=== PATIENT | male | born 1950 | race Caucasian/White ===

== ENCOUNTER 2017-05-26 22:03 | Emergency (ER) | payer MEDICARE ==
[2017-05-26 22:11] VITALS: RESP 18
--- NOTE | 2017-05-26 23:00 | ED ---
Male Urogenital HPI - General Chief complaint: Urogenital Stated complaint: URINE RETENTION Time Seen by Provider: 05/26/17 22:15 Source: patient Mode of arrival: ambulatory Limitations: no limitations - History of Present Illness Initial comments: This patient is a 66-year-old man with history of BPH and previous urinary retention. He states that for the past 3 hours he has not been able to urinate. He has started developing moderate pressure pain in the suprapubic area. He states this feels identical to previous episode of urinary retention area he states that he had have a Jeter catheter and follow up with urology previously. He sees Dr. oMnzon, though it has been a few years since he had any issue. He takes Flomax which seems to control the symptoms usually. Patient denies any other associated symptoms, no fever or chills, no vomiting or diarrhea. Patient had not been having dysuria or hematuria. MD Complaint: other (Urinary retention) Onset/Timin -: hour(s) Location: abdomen Radiation: none Severity: moderate Quality: other (Pressure) Consistency: constant Improves with: none Worsens with: palpation Reports: urinary retention - Related Data Home Medications Medication Instructions Recorded Confirmed Calcium Polycarbophil [Fibercon] 625 mg PO DAILY 05/26/17 05/26/17 Multivitamins, Thera [Multivitamin 1 tab PO DAILY 05/26/17 05/26/17 (formulary)] Tamsulosin HCl [Flomax] 0.4 mg PO DAILY 05/26/17 05/26/17 Allergies Allergy/AdvReac Type Severity Reaction Status Date / Time No Known Allergies Allergy Verified 05/26/17 22:28 Review of Systems ROS Statement: Those systems with pertinent positive or pertinent negative responses have been documented in the HPI. ROS Other: All systems not noted in ROS Statement are negative. Constitutional: Denies: fever, chills Respiratory: Denies: cough, dyspnea Cardiovascular: Denies: chest pain, palpitations, edema Gastrointestinal: Reports: abdominal pain. Denies: nausea, vomiting, diarrhea Genitourinary: Reports: other (Urinary retention). Denies: dysuria, hematuria, testicular pain Musculoskeletal: Denies: back pain Skin: Denies: rash Past Medical History Additional Past Medical History / Comment(s): BPH History of Any Multi-Drug Resistant Organisms: None Reported Past Surgical History: Hernia Repair Additional Past Surgical History / Comment(s): left shoulder Past Psychological History: No Psychological Hx Reported Smoking Status: Never smoker Past Alcohol Use History: None Reported Past Drug Use History: None Reported General Exam Limitations: no limitations General appearance: alert, in no apparent distress Head exam: Present: atraumatic, normocephalic Eye exam: Present: normal appearance. Absent: scleral icterus, conjunctival injection Respiratory exam: Present: normal lung sounds bilaterally. Absent: respiratory distress, wheezes, rales, rhonchi, stridor Cardiovascular Exam: Present: regular rate, normal rhythm, normal heart sounds. Absent: systolic murmur, diastolic murmur, rubs, gallop GI/Abdominal exam: Present: soft. Absent: distended, tenderness, guarding, rebound, rigid, mass, pulsatile mass, hernia exam: Present: normal inspection Extremities exam: Present: normal inspection, normal capillary refill. Absent: pedal edema, calf tenderness Back exam: Present: normal inspection. Absent: CVA tenderness (R), CVA tenderness (L) Skin exam: Present: warm, dry, intact, normal color. Absent: rash Course Vital Signs 05/26/17 22:06 Temperature 97.4 F L Pulse Rate 110 H Respiratory 18 Rate Blood Pressure 169/84 O2 Sat by Pulse 100 Oximetry Disposition Clinical Impression: Acute urinary retention Disposition: HOME SELF-CARE Condition: Good Instructions: Urinary Retention in Men (ED) Referrals: Jesus Monzon MD [Primary Care Provider] - 1-2 days
[2017-05-26 23:30] LABS: Appearance,Urine Clear (Clear); Bilirubin,Urine Negative (Negative); Blood,Urine Moderate (Negative); Color,Urine Light Yellow; Glucose,Urine (UA) Negative (Negative); Ketones,Urine Negative (Negative); Leukocyte Esterase,Urine Negative (Negative); Mucus,Urine Rare /hpf; Nitrite,Urine Negative (Negative); Protein,Urine Negative (Negative); RBC,Urine 38 /hpf (0-5); Specific Gravity,Urine 1.008 (1.001-1.035); Urobilinogen,Urine <2.0 mg/dL (<2.0); WBC,Urine 1 /hpf (0-5)
[2017-05-26 23:47] VITALS: BP 137/65; PULSE 92; TEMP 98.7
== END 2017-05-26 23:46 | disposition home or self-care (01) ==
LOC: EC 22:03
DX: R33.9 Retention of urine, unspecified (principal); R10.9 Unspecified abdominal pain; N40.0 Benign prostatic hyperplasia without lower urinary tract symptoms; Z79.899 Other long term (current) drug therapy
CPT/HCPCS: 51702; 81001; 99283

== ENCOUNTER → 2017-07-10 | Outpatient (CLI) | payer MEDICARE ==
[2017-07-10 10:43] LABS: Appearance,Urine Cloudy (Clear); Color,Urine Light Yellow; Glucose,Urine (UA) Negative (Negative); Ketones,Urine Negative (Negative); PH, Urine 6.5 (5.0-8.0); Protein,Urine Negative (Negative); Specific Gravity,Urine 1.006 (1.001-1.035)
[2017-07-10 10:44] LABS: Amorphous Sediment,Urine Rare /hpf; Bacteria,Urine Occasional /hpf; Bilirubin,Urine Negative (Negative); Blood,Urine Small (Negative); Leukocyte Esterase,Urine Large (Negative); Mucus,Urine Rare /hpf; Nitrite,Urine Positive (Negative); RBC,Urine 3 /hpf (0-5); Squamous Epithelial Cell,Urine <1 /hpf (0-4); Urobilinogen,Urine <2.0 mg/dL (<2.0); WBC,Urine 78 /hpf (0-5)
[2017-07-10 10:48] LABS: Basophils % (A) 0 %; Eosinophils # (A) 0.3 k/uL (0-0.7); Eosinophils % (A) 3 %; HCT 44.8 % (39.0-53.0); Lymphocytes # (A) 2.3 k/uL (1.0-4.8); Lymphocytes % (A) 20 %; MCH 30.5 pg (25.0-35.0); MCHC 33.6 g/dL (31.0-37.0); MCV 90.9 fL (80.0-100.0); Mean Platelet Volume 7.2; Monocytes # (A) 0.8 k/uL (0-1.0); Monocytes % (A) 7 %; Neutrophils % (A) 69 %; Platelet Count 225 k/uL (150-450); RBC 4.93 m/uL (4.30-5.90); RDW 12.4 % (11.5-15.5); WBC 11.7 k/uL (3.8-10.6)
[2017-07-10 11:00] LABS: ALT 70 U/L (21-72); AST 50 U/L (17-59); Albumin 4.3 g/dL (3.5-5.0); Alkaline Phosphatase 91 U/L (38-126); Anion Gap 11 mmol/L; Blood Urea Nitrogen 17 mg/dL (9-20); Calcium 9.9 mg/dL (8.4-10.2); Carbon Dioxide 28 mmol/L (22-30); Chloride 104 mmol/L (98-107); Glucose 81 mg/dL (74-99); Potassium 4.7 mmol/L (3.5-5.1); Sodium 143 mmol/L (137-145); Total Protein 6.7 g/dL (6.3-8.2)
== END ==
LOC: LABPAT 09:33
PROVIDERS: ATTEND Urology
DX: Z01.818 Encounter for other preprocedural examination (principal); N40.1 Benign prostatic hyperplasia with lower urinary tract symptoms; I10 Essential (primary) hypertension; R31.0 Gross hematuria; Z79.899 Other long term (current) drug therapy; Z01.812 Encounter for preprocedural laboratory examination
CPT/HCPCS: 36415; 80053; 81001; 85025; 86850; 86900; 86901; 87077; 87086; 87186; 93005

== ENCOUNTER 2017-07-17 07:42 | Inpatient (IN) | payer MEDICARE ==
[2017-07-09 09:39] VITALS: BMI 22.8
[~2017-07-17 07:42] MED LIST: AMPICILLIN 1,000 MG in SODIUM CHLORIDE 0.9% 50 ML IVPB ONE; DEXAMETHASONE SOD PHOSPHATE 10 MG/ML 1 ML VIAL IV ONE; GENTAMICIN 100 MG in SODIUM CHLORIDE 0.9% 100 ML IVPB ONE; LACTATED RINGERS 1,000 ML IV SCH; LIDOCAINE 1% 20 ML VIAL (10MG/ML) FOR IV START INTRADERMA PRN; MORPHINE SULFATE 4 MG/ML SYRINGE IV PRN; ONDANSETRON 4 MG/2 ML VIAL IVP ONE; SCOPOLAMINE 1.5MG/72HR PATCH TRANSDERM ONE
[2017-07-17] MEDS ORDERED: SUCCINYLCHOLINE CHLORIDE VIAL 200 MG/10 ML VIAL IV ONE (09:27)
[2017-07-17] MEDS ORDERED: HYDROmorphone (PF) 1 MG/ML ONE (09:27)
[2017-07-17] MEDS ORDERED: PROPOFOL 10 MG/ML 20 ML VIAL IV ONE (09:27)
[2017-07-17] MEDS ORDERED: LIDOCAINE 1% INJ 10MG/ML (20 ML MDV) ONE (09:27)
[2017-07-17] MEDS ORDERED: fentaNYL (PF) 50 MCG/ML 2 ML AMP ONE (09:27)
[2017-07-17] MEDS ORDERED: ePHEDrine SULFATE/0.9% NACL/PF 50 MG/5 ML SYRINGE IV ONE (09:27)
[2017-07-17] MEDS ORDERED: MIDAZOLAM 2 MG/2 ML VIAL ONE (09:27)
[2017-07-17] MEDS ORDERED: PHENYLEPHRINE-0.9% NACL SYG 1 MG/10 ML SYRINGE ONE (09:27)
[2017-07-17] MEDS ORDERED: MORPHINE SULFATE (PF) 0.3 MG/0.3 ML SYR ONE (09:27)
[2017-07-17] MEDS ORDERED: diphenhydrAMINE 50 MG/ML 1 ML VIAL IVP PRN (11:05)
[2017-07-17] MEDS ORDERED: NALOXONE 0.4 MG/ML 1 ML VIAL IV PRN ×2 (11:05→12:45)
[2017-07-17] MEDS ORDERED: MORPHINE SULFATE 4 MG/ML SYRINGE IVP PRN (11:05)
[2017-07-17] MEDS ORDERED: MAG HYDROX/AL HYDROX/SIMETH 30 ML CUP PO PRN (12:42)
[2017-07-17] MEDS ORDERED: ACETAMINOPHEN TAB 325 MG TAB PO PRN (12:42)
[2017-07-17] MEDS ORDERED: BELLADONNA-OPIUM 16.2-60 MG 1 EACH SUPP RECTAL PRN (12:42)
[2017-07-17] MEDS ORDERED: HYDROmorphone PCA 5 MG/25 ML SYRINGE IV PRN (12:45)
--- NOTE | 2017-07-17 12:57 | P.OP ---
Date of Procedure: 07/17/17 Preoperative Diagnosis: Urine retention secondary to very large prostate Postoperative Diagnosis: Same Procedure(s) Performed: Suprapubic prostatectomy, cystoscopy and transurethral fulguration of bleeding Anesthesia: guadalupe STEVENS Surgeon: Jesus Monzon Staff Field Engineer #1: Bay Cosby Estimated Blood Loss (ml): 800 Condition: stable Disposition: PACU Indications for Procedure: The patient is a 66-year-old gentleman who has a history of prostatism. He has been on finasteride and Flomax. He went in urinary retention despite that. Cystoscopy identified a very large prostate. Prostate ultrasound identified the prostate it over 200 mL volume. He come for a suprapubic prostatectomy. He 's been offered alternatives Description of Procedure: The patient is brought to the operating suite. He is given a successful spinal anesthesia. He is given a sterile prep and drape. The midline suprapubic incision is made and it has become apparent that the spinal anesthetic has not taken yet. He is thus given a general endotracheal anesthesia. I then open the rectus fascia in the midline. The prevesical space is developed. The bladder is opened. The bladder wall is very thick. I then place retraction with the [place] retractor. Identify the ureteral orifice sees. There is a very large intravesical middle lobe and a very long deep prostate. I incised the mucosa around the bladder neck making sure not to injure the ureteral orifice sees. I dissect the posterior prostate off the true prostate. I cracked the mucosa anteriorly and dissect the lateral lobes off the body wall. I finally nucleate the whole prostate out of the prosthetic bed. His very large. Bleeding is controlled by using 3-0 chromic stitches around the bladder neck to the prostatic bed. At this point in time a 20-Nauruan 30 mL balloon catheters placed through the urethra. An 18-Nauruan 5 mL balloon was brought through separate stab incision into the bladder wall. The bladder is closed with 2 layers of 2 and extubated 3 and 2-0 Vicryl. The bladder irrigates light clear. Excellent breath drains brought through separate stab incision. The rectus fascias closed with double-stranded 0 PDS a skin is stapled. Unfortunately spinal anesthetic did not take and the patient woke up for severe amount of discomfort. The Valsalva cause a significant amount of bleeding such that he had be reintubated. I then performed transurethral inspection of the prosthetic fossa. I controlled bleeding with electrocautery. There is a fair amount of apical bleeding. Then of the procedure I reintroduced the 20-Nauruan 30 mL balloon over a mandrin guide. There is light pink urine return with irrigation. The patient is awakened deeply and returned recovery room good condition. Blood loss is approximately 800 mL.
[2017-07-17] MEDS ORDERED: SODIUM CHLORIDE 0.9% IRRIG 3,000 ML BAG IRRIGATION SCH (13:30)
[2017-07-17 13:45] LABS: Basophils % (A) 0 %; Eosinophils # (A) 0.1 k/uL (0-0.7); Eosinophils % (A) 1 %; HCT 38.3 % (39.0-53.0); HGB 12.9 gm/dL (13.0-17.5); Lymphocytes # (A) 1.2 k/uL (1.0-4.8); Lymphocytes % (A) 5 %; MCH 30.6 pg (25.0-35.0); MCHC 33.7 g/dL (31.0-37.0); MCV 90.8 fL (80.0-100.0); Mean Platelet Volume 7.8; Monocytes # (A) 0.7 k/uL (0-1.0); Monocytes % (A) 3 %; Neutrophils # (A) 21.8 k/uL (1.3-7.7); Neutrophils % (A) 91 %; Platelet Count 253 k/uL (150-450); RBC 4.22 m/uL (4.30-5.90); RDW 12.5 % (11.5-15.5)
[2017-07-17] MEDS: DEXTROSE 5%-0.45% NACL 1,000 ML IV SCH (19:34)
[2017-07-17] MEDS: DOCUSATE 100 MG CAP PO SCH (19:40)
[2017-07-18] MEDS: DEXTROSE 5%-0.45% NACL 1,000 ML IV SCH ×2 (03:24→15:49)
--- NOTE | 2017-07-18 05:44 | P.PN ---
Progress Note - Text Date: 07/18/2017 Time: 0506 The patient is status post, suprapubic prostatectomy, postoperative day #1. Vital signs stable VAS: 0-10 Patient has no complaints of pain. The patient has no complaints of nausea vomiting or headache. Pain meds to be managed by service.
--- NOTE | 2017-07-18 06:14 | P.PN ---
Subjective Progress Note Date: 07/18/17 The patient is in his first postoperative day from a suprapubic prostatectomy and postoperative bleeding control with a transurethral cauterization. His urine is quite clear with a slow irrigation this morning. His abdomen was soft. He is having minimal pain. He tolerated diet last night. I will stop the irrigation. He will sit up in a chair today. He'll continue with the pain control. His hemoglobin was good postop. Objective - Vital Signs Vital signs: Vital Signs Temp 98.4 F 07/18/17 00:00 Pulse 92 07/18/17 00:00 Resp 18 07/18/17 06:00 BP 118/70 07/18/17 00:00 Pulse Ox 97 07/18/17 00:00 Intake & Output 07/17/17 07/17/17 07/18/17 06:59 18:59 06:59 Intake Total 2652.5 862.5 Output Total 3820 6640 Balance -1167.5 -5777.5 Weight 70.307 kg Intake: IV 2502.5 Intake, IV Titration 862.5 Amount Dextrose 5%-0.45% NaCl 1, 862.5 000 ml @ 75 mls/hr IV . [id number] [facility] Rx#:[id number] Oral 150 Output: Drainage 40 Lower Abdomen 40 Urine 2950 6600 Suprapubic 2450 Uretheral (Jeter) 6600 Estimated Blood Loss 870 Other: Voiding Method Indwelling Catheter Indwelling Catheter - Labs CBC & Chem 7: 07/17/17 13:12 Labs: Abnormal Lab Results - Last 24 Hours (Table) 07/17/17 Range/Units 13:12 WBC 24.0 H (3.8-10.6) k/uL RBC 4.22 L (4.30-5.90) m/uL Hgb 12.9 L (13.0-17.5) gm/dL Hct 38.3 L (39.0-53.0) % Neutrophils # 21.8 H (1.3-7.7) k/uL
[2017-07-18] MEDS ORDERED: SODIUM CHLORIDE 0.9% IRRIG 3,000 ML BAG IRRIGATION SCH (07:30)
[2017-07-18] MEDS: SODIUM CHLORIDE 0.9% IRRIGATIO 3,000 ML IRRIGATION SCH (08:25)
[2017-07-18] MEDS: DOCUSATE 100 MG CAP PO SCH ×2 (08:29→22:24)
[2017-07-19] MEDS: DEXTROSE 5%-0.45% NACL 1,000 ML IV SCH ×2 (06:11→10:24)
[2017-07-19] MEDS ORDERED: OXYBUTYNIN CHLORIDE 5 MG TAB PO PRN (06:59)
--- NOTE | 2017-07-19 06:59 | P.PN ---
Subjective Progress Note Date: 07/19/17 The patient is in his second postoperative day from a suprapubic prostatectomy. His urine is clear off irrigation. His vital signs are stable. His pain is under control. I will discontinue his IV and FIRST COOK. I will place him on oral pain medicine. I'll place him on some Ditropan for bladder spasms. Objective - Vital Signs Vital signs: Vital Signs Temp 99.5 F 07/18/17 20:04 Pulse 116 H 07/19/17 00:30 Resp 16 07/19/17 06:00 BP 118/67 07/18/17 20:04 Pulse Ox 96 07/18/17 20:04 Intake & Output 07/18/17 07/18/17 07/19/17 06:59 18:59 06:59 Intake Total 862.5 1017 600 Output Total 6640 40 2510 Balance -5777.5 977 -1910 Weight 70.307 kg Intake: Intake, IV Titration 862.5 600 Amount Dextrose 5%-0.45% NaCl 1, 862.5 600 000 ml @ 75 mls/hr IV . [id number] [facility] Rx#:[id number] Oral 417 600 Output: Drainage 40 40 Lower Abdomen 40 40 Urine 6600 2510 Uretheral (Jeter) 6600 Other: Voiding Method Indwelling Catheter Indwelling Catheter Indwelling Catheter - Labs CBC & Chem 7: 07/17/17 13:12
[2017-07-19] MEDS: DOCUSATE 100 MG CAP PO SCH ×2 (10:20→19:53)
[2017-07-19] MEDS: SODIUM CHLORIDE 0.9% IRRIGATIO 3,000 ML IRRIGATION SCH (10:25)
[2017-07-19] MEDS: HYDROcodone/APAP 5-325MG 1 EACH TAB PO PRN (22:20)
[2017-07-20] MEDS: HYDROcodone/APAP 5-325MG 1 EACH TAB PO PRN (03:57)
--- NOTE | 2017-07-20 06:54 | P.DS ---
Providers Date of admission: 07/17/17 07:42 Attending physician: Jesus Monzon Primary care physician: Jesus Monzon [facility] Course: The patient is a 66-year-old gentleman who was admitted to the hospital on 2017 he underwent a suprapubic prostatectomy and postoperative endoscopy with fulguration of bleeding. He has done well postoperatively. His irrigation was stopped on the first 24 hours. He ambulated in the second 24 hours. He is tolerating a regular diet. His urethral catheter and drained of been removed. Postoperative pain has been controlled appropriately. His hemoglobin is appropriate. His pathology was benign. Good. He is able to tolerate regular diet and ambulate and his pain is under control. He'll be discharged home with his suprapubic tube to drainage. He'll follow-up in the office next Saturday for staple removal. The catheter stent of the following week. Postoperative instructions and pathology reported been discussed. His condition is good upon discharge Patient Condition at Discharge: Good Plan - Discharge Summary Discharge Rx Participant: Yes New Discharge Prescriptions: New HYDROcodone/APAP 5-325MG [[place] 5-325] 1 tab PO Q4HR PRN #14 tab PRN Reason: Pain Control No Action Tamsulosin HCl [Flomax] 0.4 mg PO BID Multivitamins, Thera [Multivitamin (formulary)] 1 tab PO DAILY Ibuprofen [Advil] 200 mg PO Q8HR PRN PRN Reason: Pain Finasteride [Proscar] 5 mg PO HS Fiber Capsule(Dose Unknown) 5 cap PO DAILY Discharge Medication List Multivitamins, Thera [Multivitamin (formulary)] 1 tab PO DAILY 05/26/17 [History ] Tamsulosin HCl [Flomax] 0.4 mg PO BID 05/26/17 [History] Fiber Capsule(Dose Unknown) 5 cap PO DAILY 07/09/17 [History] Finasteride [Proscar] 5 mg PO HS 07/09/17 [History] Ibuprofen [Advil] 200 mg PO Q8HR PRN 07/09/17 [History] HYDROcodone/APAP 5-325MG [[place] 5-325] 1 tab PO Q4HR PRN #14 tab 07/20/17 [Rx] Follow up Appointment(s)/Referral(s): Jesus Monzon MD [Primary Care Provider] - 07/24/17 Activity/Diet/Wound Care/Special Instructions: Home with suprapubic tube. May shower. No heavy activity. Resume his home medications. Discharge Disposition: HOME SELF-CARE
[2017-07-20 07:15] VITALS: BP 146/78; PULSE 78; RESP 12; TEMP 97.5
[2017-07-20] MEDS: DOCUSATE 100 MG CAP PO SCH (07:16)
[2017-07-20] MEDS: DEXTROSE 5%-0.45% NACL 1,000 ML IV SCH (08:35)
[2017-07-20] MEDS: SODIUM CHLORIDE 0.9% IRRIGATIO 3,000 ML IRRIGATION SCH (08:36)
== END 2017-07-20 12:42 | disposition home or self-care (01) | DRG 909 ==
LOC: 2ORMAIN 07:42 → 3SUR 12:28
PROVIDERS: ADMIT Urology; ATTEND Urology
PROC: 0W3R7ZZ Control Bleeding in Genitourinary Tract, Via Natural or Artificial Opening (ICD-10-PCS; 2017-07-17)
PROC: 0VT04ZZ Resection of Prostate, Percutaneous Endoscopic Approach (ICD-10-PCS; principal; 2017-07-17 09:15)
DX: N99.61 Intraoperative hemorrhage and hematoma of a genitourinary system organ or structure complicating a genitourinary system procedure (principal); N40.1 Benign prostatic hyperplasia with lower urinary tract symptoms; R33.8 Other retention of urine; N32.89 Other specified disorders of bladder; F41.9 Anxiety disorder, unspecified; M54.9 Dorsalgia, unspecified; M54.2 Cervicalgia; M25.50 Pain in unspecified joint; K30 Functional dyspepsia; Z82.3 Family history of stroke; Z82.49 Family history of ischemic heart disease and other diseases of the circulatory system
CPT/HCPCS: 85025; 86850; 86900; 86901; 88307; 94760; 94762

== ENCOUNTER → 2019-03-18 | Outpatient (CLI) | payer MEDICARE ==
--- NOTE | 2019-03-18 21:36 | MR ---
EXAMINATION TYPE: MR iac wo/w con DATE OF EXAM: 03/18/2019 COMPARISON: None HISTORY: Dizziness TECHNIQUE: Multiplanar, multisequence images of the brain and brainstem with small [id number] and high resolu tion images through the internal auditory canals is performed without and with IV contrast, utilizing 7 mL intravenous Gadavist . FINDINGS: Diffusion weighted images demonstrate no evidence of a recent infarct or other diffusion ab normality. There is no extra-axial fluid collection, some confluent periventricular hyperintensity a nd inversion recovery T2-weighted sequences is present. The ventricular system and cisternal spaces are normal in size and appearance. The brain volume is age appropriate. Internal auditory canals keegan w symmetric appearance. Midline structures demonstrate normal morphology. The craniocervical junction appears within normal limits. Post contrast images demonstrate no abnormal enhancement. The dural venous sinuses appear pa tent. The visualized sinuses are remarkable for mucosal disease in the ethmoid air cells and the glob es are intact. IMPRESSION: Nonspecific white matter demyelination may be due to chronic small vessel ischemic change , there is age-related atrophy
== END | disposition home or self-care (01) ==
LOC: RADMRIMAIN 08:13
PROVIDERS: ATTEND Otolaryngology
DX: G37.9 Demyelinating disease of central nervous system, unspecified (principal)
CPT/HCPCS: 70553; A9585

== ENCOUNTER 2020-03-07 12:08 | Day surgery (SDC) | payer MEDICARE ==
[2020-03-01 13:27] VITALS: BMI 22.8
[~2020-03-07 12:08] MED LIST changes: -AMPICILLIN 1,000 MG in SODIUM CHLORIDE 0.9% 50 ML IVPB ONE; -DEXAMETHASONE SOD PHOSPHATE 10 MG/ML 1 ML VIAL IV ONE; -GENTAMICIN 100 MG in SODIUM CHLORIDE 0.9% 100 ML IVPB ONE; -LACTATED RINGERS 1,000 ML IV SCH; -LIDOCAINE 1% 20 ML VIAL (10MG/ML) FOR IV START INTRADERMA PRN; -MORPHINE SULFATE 4 MG/ML SYRINGE IV PRN; -ONDANSETRON 4 MG/2 ML VIAL IVP ONE; -SCOPOLAMINE 1.5MG/72HR PATCH TRANSDERM ONE; +SODIUM CHLORIDE 0.9% 1,000 ML IV SCH
[2020-03-07] MEDS ORDERED: SODIUM CHLORIDE 0.9% 1,000 ML IV ONE (12:23)
[2020-03-07 12:45] VITALS: RESP 16; TEMP 98.5
[2020-03-07 14:38] VITALS: BP 132/73; PULSE 73
--- NOTE | 2020-03-07 18:25 | P.EPPROC ---
- EP Procedure Note Electrophysiology Procedure Note: Diagnosis Recurrent presyncope Twelve-lead EKG Sinus rhythm normal [place] narrow QRS normal ST segments Tilt table test per protocol Baseline blood pressure 155/77 mmHg pulse rate in the 80s Patient was tilted upright at an angle of 70 per protocol blood pressure remained in the 130s to 140s systolic. Diastolic remained in the 80s Pulse rate in the 70s and 80s No syncope He is laid supine at the end of the procedure Impression Normal twelve-lead EKG Normal heart rate and blood pressure response to upright tilting
== END 2020-03-07 14:21 | disposition home or self-care (01) ==
LOC: CATHEP 12:08
PROVIDERS: ATTEND Internal Medicine Clinical Cardiac Electrophysiology
DX: R55 Syncope and collapse (principal)
CPT/HCPCS: 93660

== ENCOUNTER → 2020-12-13 | Outpatient (CLI) | payer MEDICARE ==
--- NOTE | 2020-12-13 12:14 | XR ---
EXAMINATION TYPE: XR chest 2V DATE OF EXAM: 12/13/2020 COMPARISON: NONE TECHNIQUE: PA and lateral views submitted. HISTORY: Presurgical FINDINGS: The lungs are clear and there is no pneumothorax, pleural effusion, or focal pneumonia. Curvature o f the spine with degenerative changes. Heart size normal. No overt failure. Biapical pleural thickeni ng. Hyperinflation suggests COPD. IMPRESSION: 1. No acute process. Correlate for COPD.
[2020-12-13 14:48] LABS: Appearance,Urine Clear (Clear); Bilirubin,Urine Negative (Negative); Blood,Urine Negative (Negative); Color,Urine Light Yellow; Glucose,Urine (UA) Negative (Negative); Ketones,Urine Negative (Negative); Leukocyte Esterase,Urine Negative (Negative); Nitrite,Urine Negative (Negative); Protein,Urine Negative (Negative); Specific Gravity,Urine 1.005 (1.001-1.035); Urobilinogen,Urine <2.0 mg/dL (<2.0)
[2020-12-13 15:52] LABS: HCT 49.3 % (39.6-50.0); HGB 16.1 g/dL (13.0-17.0); MCH 30.9 pg (27.0-32.0); MCHC 32.7 g/dL (32.0-37.0); MCV 94.6 fL (80.0-97.0); Mean Platelet Volume 10.7 fL (9.5-12.2); Platelet Count 251 X 10*3/uL (140-440); RBC 5.21 X 10*6/uL (4.40-5.60); RDW 11.8 % (11.5-14.5); WBC 9.43 X 10*3/uL (4.50-10.00)
[2020-12-13 20:05] LABS: African American GFR (CKD) 81.7 (60.0-200.0); Albumin/Globulin Ratio 2.59 (1.60-3.17); Anion Gap 11.4 mmol/L (4.00-12.00); BUN/Creat Ratio 17.2 Ratio (12.00-20.00); Blood Urea Nitrogen 18.4 mg/dL (9.0-27.0); Calcium 10.2 mg/dL (8.7-10.3); Carbon Dioxide 26.8 mmol/L (21.6-31.8); Globulin 1.9 g/dL (1.6-3.3); Non-African American GFR(CKD) 70.5 (60.0-200.0); Total Bilirubin 0.8 mg/dL (0.30-1.20); Total Protein 6.9 g/dL (6.2-8.2)
== END | disposition home or self-care (01) ==
LOC: LABWHC1 11:20
PROVIDERS: ATTEND Orthopaedic Surgery Orthopaedic Surgery of the Spine
DX: Z01.812 Encounter for preprocedural laboratory examination (principal); Z01.818 Encounter for other preprocedural examination
CPT/HCPCS: 36415; 71046; 80053; 81003; 85027; 85730

== ENCOUNTER 2020-12-20 10:43 | Emergency (ER) | payer MEDICARE ==
[2020-12-20 11:15] VITALS: BP 147/76; PULSE 102; RESP 16; TEMP 98
--- NOTE | 2020-12-20 11:46 | ED ---
Male Urogenital HPI - General Chief complaint: Urogenital Stated complaint: unable to urinate post procedure Time Seen by Provider: 12/20/20 11:32 Source: patient, RN notes reviewed Mode of arrival: ambulatory Limitations: no limitations - History of Present Illness Initial comments: This a 70-year-old male presents emergency with chief complaint of unable to urinate. Patient states he has some dribbling. Patient states he just had a laminectomy this morning by Dr. Barber. Patient was recommended to come emergency Department if he feels unable to urinate for Jeter catheter. He has had this happen the past secondary to surgery and prostate issues. Patient states his pain is essentially very mild in his back. He has not drank much fluids as she's been nothing by mouth since midnight. Patient is just concerned he doesn't want to go home and come back. - Related Data Home Medications Medication Instructions Recorded Confirmed Fiber Capsule(Dose Unknown) 5 cap PO DAILY 07/09/17 03/07/20 Ibuprofen [Advil] 200 mg PO Q8HR PRN 07/09/17 03/01/20 Aspirin 81 mg PO DAILY 03/01/20 03/07/20 Multivitamins, Thera [Multivitamin 1 tab PO DAILY 03/01/20 03/07/20 (formulary)] Allergies Allergy/AdvReac Type Severity Reaction Status Date / Time No Known Allergies Allergy Verified 03/07/20 12:52 Review of Systems ROS Statement: Those systems with pertinent positive or pertinent negative responses have been documented in the HPI. ROS Other: All systems not noted in ROS Statement are negative. Past Medical History Past Medical History: GERD/Reflux, Prostate Disorder Additional Past Medical History / Comment(s): hx gout, SEE DR MARSH'S HISTORY AND PHYSICAL FOR CARDIAC HISTORY History of Any Multi-Drug Resistant Organisms: None Reported Past Surgical History: Hernia Repair, Orthopedic Surgery, Prostate Surgery, Tonsillectomy Additional Past Surgical History / Comment(s): hernia x 2, left shoulder surgery Past Anesthesia/Blood Transfusion Reactions: Previous Problems w/ Anesthesia Additional Past Anesthesia/Blood Transfusion Reaction / Comment(s): diff urinating after surgeries Past Psychological History: No Psychological Hx Reported Smoking Status: Former smoker - Past Family History Father Family Medical History: Cancer General Exam Limitations: no limitations General appearance: alert, in no apparent distress Head exam: Present: atraumatic, normocephalic, normal inspection Eye exam: Present: normal appearance, PERRL, EOMI. Absent: scleral icterus, conjunctival injection, periorbital swelling Respiratory exam: Present: normal lung sounds bilaterally. Absent: respiratory distress, wheezes, rales, rhonchi, stridor Cardiovascular Exam: Present: regular rate, normal rhythm, normal heart sounds. Absent: systolic murmur, diastolic murmur, rubs, gallop, clicks GI/Abdominal exam: Present: soft, normal bowel sounds. Absent: distended, tenderness, guarding, rebound, rigid Course Vital Signs 12/20/20 11:13 Temperature 98.0 F Pulse Rate 102 H Respiratory 16 Rate Blood Pressure 147/76 O2 Sat by Pulse 98 Oximetry Medical Decision Making - Medical Decision Making 70-year-old presented for unable to urinate after surgery. Patient's had this happen the past secondary to BPH issues. Patient has requesting a Jeter catheter placed as he does not want to have compilations. Patient will be discharged stable condition return parameters discussed. Disposition Clinical Impression: Urine retention Disposition: HOME SELF-CARE Condition: Stable Instructions (If sedation given, give patient instructions): Urinary Retention in Men (ED) Additional Instructions: Please return to the Emergency Department if symptoms worsen or any other concerns. Is patient prescribed a controlled substance at d/c from ED?: No Referrals: Fermin Ramirez MD [Primary Care Provider] - 1-2 days Philip Keen MD [STAFF PHYSICIAN] - 1-2 days Time of Disposition: 12:42
== END 2020-12-20 13:00 | disposition home or self-care (01) ==
LOC: EC 10:43
DX: R33.9 Retention of urine, unspecified (principal); Z87.891 Personal history of nicotine dependence
CPT/HCPCS: 51798; 99283

== ENCOUNTER → 2022-07-30 | Outpatient (CLI) | payer MEDICARE ==
--- NOTE | 2022-07-30 10:03 | US ---
EXAMINATION TYPE: US kidneys/renal and bladder DATE OF EXAM: 07/30/2022 COMPARISON: NONE CLINICAL INDICATION: Male, 72 years old with history of R31.9 HEMATURIA; Patient states having one ep isode of macroscopic hematuria x few months ago. Patient states having normal renal labs. EXAM MEASUREMENTS: Right Kidney: 9.9 x 4.6 x 4.2 cm Left Kidney: 9.5 x 4.0 x 4.9 cm Both grayscale and color Doppler ultrasound images of both kidneys and urinary bladder were obtained. Right Kidney: Inferior pole obscured by bowel gas Left Kidney: No hydronephrosis or masses seen Bladder: distended, anechoic Bilateral Jets seen There is no evidence for hydronephrosis at this point in time. No nephrolithiasis is seen. No jeri s are identified. Corticomedullary differentiation is maintained bilaterally. The urinary bladder is anechoic. Bilateral ureteral jets are seen. IMPRESSION: No hydronephrosis or nephrolithiasis.
== END | disposition home or self-care (01) ==
LOC: RADUSWWP 09:00
PROVIDERS: ATTEND Internal Medicine Geriatric Medicine
DX: R31.9 Hematuria, unspecified (principal)
CPT/HCPCS: 76770

== ENCOUNTER → 2022-10-09 | Outpatient (CLI) | payer MEDICARE ==
[2022-10-09 13:08] LABS: African American GFR (CKD) 84 (>60 ml/min/1.73 sqM); Blood Urea Nitrogen 23 mg/dL (9-20); Non-African American GFR(CKD) 72 (>60 ml/min/1.73 sqM)
--- NOTE | 2022-10-09 14:38 | CT ---
EXAMINATION TYPE: CT abdomen pelvis w con CT DLP: 370.2 mGycm, Automated exposure control for dose reduction was used. DATE OF EXAM: 10/09/2022 2:21 PM COMPARISON: none CLINICAL INDICATION:Male, 72 years old with history of R63.4 ABNORMAL WEIGHT LOSS; abnormal weight lo ss TECHNIQUE: Axial CT of the abdomen and pelvis. Sagittal and coronal reformats were created on a [employer] workstation. Contrast used:100 mL of Isovue 300 with IV Contrast, (none if empty) Oral contrast used: with Oral Contrast (none if empty) FINDINGS: LOWER CHEST: Unremarkable ABDOMEN LIVER: Unremarkable GALLBLADDER AND BILE DUCTS: Unremarkable. PANCREAS: Unremarkable. SPLEEN: Unremarkable. ADRENAL GLANDS: Unremarkable. KIDNEYS AND URETERS: Bilateral nonobstructing calculi measuring up to 3 mm on the left. No right nilo l calculi. PELVIS BLADDER: Unremarkable REPRODUCTIVE: Unremarkable. ABDOMEN & PELVIS STOMACH AND BOWEL: Scattered colonic diverticula are present. There is a large stool burden throughou t the colon. No evidence of bowel obstruction. PERITONEUM/RETROPERITONEUM: No evidence of pneumoperitoneum or free fluid. VASCULATURE: No evidence of aortic aneurysm. MUSCULOSKELETAL: No acute osseous abnormalities LYMPH NODES: No gross evidence for lymphadenopathy. SOFT TISSUE/ABDOMINAL WALL: Unremarkable IMPRESSION: 1. No evidence for mass. 2. Colonic diverticulosis. 3. Large stool burden throughout the colon.
== END | disposition home or self-care (01) ==
LOC: RADCTMAIN 12:10
PROVIDERS: ATTEND Internal Medicine Geriatric Medicine
DX: K57.30 Diverticulosis of large intestine without perforation or abscess without bleeding (principal); R63.4 Abnormal weight loss
CPT/HCPCS: 82565; 84520; 74177; 36415; Q9967

== ENCOUNTER → 2024-08-20 | Outpatient (CLI) | payer MEDICARE ==
[2024-08-20 20:12] LABS: Basophils # (A) 0.05 X 10*3/uL (0.00-0.10); Basophils % (A) 0.6 %; Eosinophils # (A) 0.19 X 10*3/uL (0.04-0.35); Eosinophils % (A) 2.1 %; HCT 47.1 % (39.6-50.0); HGB 15.4 g/dL (13.0-17.0); Lymphocytes # (A) 2.01 X 10*3/uL (0.90-5.00); Lymphocytes % (A) 22.7 %; MCH 30.7 pg (27.0-32.0); MCHC 32.7 g/dL (32.0-37.0); Mean Platelet Volume 10.3 FL (9.5-12.2); Monocytes # (A) 0.72 X 10*3/uL (0.20-1.00); Monocytes % (A) 8.1 %; NRBC Per 100 WBC 0 X 10*3/uL (0.00-0.01); Neutrophils # (A) 5.87 X 10*3/uL (1.80-7.70); Neutrophils % (A) 66.3 %; Platelet Count 252 X 10*3/uL (140-440); RBC 5.01 X 10*6/uL (4.40-5.60); RDW 11.9 % (11.5-14.5); WBC 8.86 X 10*3/uL (4.50-10.00)
[2024-08-20 22:05] LABS: Chol/HDL Ratio 2.59 Ratio
[2024-08-20 22:06] LABS: ALT 7 U/L (10-49); AST 21 U/L (14-35); Albumin 4.6 g/dL (3.8-4.9); Alkaline Phosphatase 87 U/L (41-126); Blood Urea Nitrogen 17.1 mg/dL (9.0-27.0); Calcium 9.2 mg/dL (8.7-10.3); Carbon Dioxide 25.8 mmol/L (21.6-31.8); Chloride 106 mmol/L (96-109); Glucose 75 mg/dL (70-110); LDL Cholesterol,Calculated 83.6 mg/dL (0.0-131.0); Potassium 4.3 mmol/L (3.5-5.5); Prostate Specific Antigen 6.15 ng/mL (0.000-6.500); Sodium 142 mmol/L (135-145); Total Protein 6.6 g/dL (6.2-8.2)
== END | disposition home or self-care (01) ==
LOC: LABWHC1 15:08
PROVIDERS: ATTEND Internal Medicine Geriatric Medicine
DX: R06.02 Shortness of breath (principal); R73.9 Hyperglycemia, unspecified; E78.2 Mixed hyperlipidemia; N40.1 Benign prostatic hyperplasia with lower urinary tract symptoms; G31.83 Neurocognitive disorder with Lewy bodies; N13.8 Other obstructive and reflux uropathy
CPT/HCPCS: 36415; 80053; 80061; 83036; 84153; 84443; 85025